=== PATIENT | male | born 1980 | race Caucasian/White ===

== ENCOUNTER 2021-01-31 07:25 | Inpatient (IN) ==
[2021-01-31 07:44] VITALS: BMI 39.1
[2021-01-31 08:12] LABS: BASOPHILS % (AUTO) 0.1 % (0.2-1.0); HEMATOCRIT 44.7 % (42.0-54.0); HEMOGLOBIN 15.3 g/dL (13.5-18.0); LYMPHOCYTES # (AUTO) 0.4 X10^3/uL (1.3-2.9); MEAN CORPUSCULAR HEMOGLOBIN 30.5 pg (27.0-34.0); MEAN CORPUSCULAR HGB CONC 34.2 g/dL (33.0-35.0); MEAN CORPUSCULAR VOLUME 89.1 fL (80.0-100.0); MEAN PLATELET VOLUME 8.1 fL (7.4-11.0); MONOCYTES # (AUTO) 0.2 x10^3/uL (0.3-0.8); MONOCYTES % (AUTO) 4.4 % (0.0-13.0); NEUTROPHILS # (AUTO) 4.5 x10^3/uL (2.2-4.8); NEUTROPHILS % (AUTO) 87.5 % (42.0-75.0); PLATELET COUNT 185 X10^3/uL (150.0-450.0); RED BLOOD COUNT 5.02 X10^6/uL (4.7-6.0); RED CELL DISTRIBUTION WIDTH 13.4 % (11.6-16.5); WHITE BLOOD COUNT 5.1 X10^3/uL (3.6-10.0)
[2021-01-31 08:17] LABS: ABG ALLEN TEST POS; ABG BASE EXCESS 4.1 mmol/L (-2.0-2.0); ABG HCO3 29.2 mmol/L (22-26)
[2021-01-31 08:18] LABS: BLOOD UREA NITROGEN 21 mg/dL (7-18); CALCIUM 8.3 mg/dL (8.5-10.1); CHLORIDE 101 mmol/L (98-107); COR NA(FOR HYPERGLY) 141 mmol/L (136-145); CREATININE 1.41 mg/dL (0.70-1.30); SODIUM 140 mmol/L (136-145); eGFR NON BLACK RACES 59 (>60)
[2021-01-31] MEDS ORDERED: NS 1000 ML 1,000 ML ONE (08:30)
[2021-01-31] MEDS ORDERED: SOLU-Medrol 125 MG VIAL ONE (08:30)
[2021-01-31] MEDS ORDERED: SOLU-Medrol 125 MG VIAL IVP ONE (08:41)
[2021-01-31] MEDS ORDERED: NS 1000 ML 1,000 ML IV ONE (08:41)
--- NOTE | 2021-01-31 08:50 | DR.URIAD ---
HPI Time Seen Time Seen by Provider: 01/31/21 08:05 PCP Primary Care Physician: [facility] Complaint Chief Complaint Doctors Comments: FEVER,, INCREASING SOB AND TIRED TIMES ONE WEEK. Chief Complaint:: Sinus infection s/s started 2 weeks ago. Started running fever a week ago today. Went to the Dr. and tested (+) 01/24. Came to the ER today with increased SOB, intermittent fever x1 week, and lethargy Self Treatment fo Chief Complaint: Pt. has been taking the following rx. since on 01/24. Prednisone daily, Zofran prn, Albuterol inhaler, Doxycycline, Ivermectin (started 01/26) COVID-19 Coronavirus risk:travel/contact w/high risk person: No Has patient experienced Coronavirus symptoms: Yes Coronavirus symptoms experienced: Fever, Coughing and Shortness of Breath Source History Provided: Patient Mode of Arrival Mode of Arrival: Ambulatory Timing Onset of Chief Complaint: 01/24/21 PMH PMH Past Medical History: Yes Past Medical History: Dyslipidemia Past Surgical History: Yes Surgical History: Cholecystectomy Family History History of Family Medical Conditions: Yes Family Medical History: Diabetes Mellitus and Coronary Artery Disease Social History Does patient currently use any type of tobacco product: No Have you used tobacco products in the last 12 months: No Type of Tobacco Use: None Does any household member use tobacco: No Alcohol Use: None Do you use any recreational Drugs:: No Lives With: Significant Other Lives Where: Home Travel Risk Coronavirus risk:travel/contact w/high risk person: No Has patient experienced Coronavirus symptoms: Yes Coronavirus symptoms experienced: Fever, Coughing and Shortness of Breath Infectious screening In the last 2 months have you had wt loss of >10#?: NO Have you had fever, night sweats or hemotysis?: No Have you traveled outside the country in the last 6 months?: No Isolation: Airborn/Negative Pressure ROS Review of Systems Constitutional: See HPI, Fever, Weakness and Fatigue Eyes: See HPI ENTM: See HPI, Nose Discharge and Nose Congestion Respiratoy: Moist Cough and Short of Breath Cardiovascular: No Symptoms Reported and See HPI; negative Chest Pain Gastrointestinal/Abdominal: See HPI, Abdominal Pain and Diarrhea Genitourinary: No Symptoms Reported, See HPI and Dysuria Neurological: See HPI, Headache and Weakness Musculoskeletal: No Symptoms Reported and See HPI Integumentary: No Symptoms Reported and See HPI Hematologic/Lymphatic: No Symptoms Reported Endocrine: No Symptoms Reported Psychiatric: No Symptoms Reported All Other Systems: Reviewed and Negative PE Vital Signs Vitals: Temperature 97.2 F Pulse Rate 78 Respiratory Rate 20 Blood Pressure 130/66 O2 Sat by Pulse Oximetry 95 COURSE Treatment Treatment: SEE ORDERS. Consultation Consultation Comments: DISCUSSED PATIENT WITH DR. POP, HE WILL ADMIT PATIENT. Education/Counseling Education/Counseling: Patient Educated On: Diagnosis ROR Labs Reviewed Laboratory Results Reviewed?: Yes Result Diagrams: 01/31/21 08:03 01/31/21 08:03 Laboratory: WBC 5.1 X10^3/uL (3.6-10.0) 01/31/21 08:03 RBC 5.02 X10^6/uL (4.7-6.0) 01/31/21 08:03 Hgb 15.3 g/dL (13.5-18.0) 01/31/21 08:03 Hct 44.7 % (42.0-54.0) 01/31/21 08:03 MCV 89.1 fL (80.0-100.0) 01/31/21 08:03 MCH 30.5 pg (27.0-34.0) 01/31/21 08:03 MCHC 34.2 g/dL (33.0-35.0) 01/31/21 08:03 RDW 13.4 % (11.6-16.5) 01/31/21 08:03 Plt Count 185 X10^3/uL (150.0-450.0) 01/31/21 08:03 MPV 8.1 fL (7.4-11.0) 01/31/21 08:03 Neut % (Auto) 87.5 % (42.0-75.0) H 01/31/21 08:03 Lymph % (Auto) 8.0 % (21.0-51.0) L 01/31/21 08:03 [place] % (Auto) 4.4 % (0.0-13.0) 01/31/21 08:03 Eos % (Auto) 0.0 % (0.9-2.9) L 01/31/21 08:03 Baso % (Auto) 0.1 % (0.2-1.0) L 01/31/21 08:03 Neut # (Auto) 4.5 x10^3/uL (2.2-4.8) 01/31/21 08:03 Lymph # (Auto) 0.4 X10^3/uL (1.3-2.9) L 01/31/21 08:03 [place] # (Auto) 0.2 x10^3/uL (0.3-0.8) L 01/31/21 08:03 Eos # (Auto) 0.0 x10^3/uL (0.0-0.2) 01/31/21 08:03 Baso # (Auto) 0.0 X10^3/uL (0.0-0.1) 01/31/21 08:03 Absolute Nucleated RBC 0.1 /100WBC 01/31/21 08:03 D-Dimer 0.57 ug/ml (0.0-0.57) 01/31/21 08:03 Sample Site Lbrach 01/31/21 11:03 ABG pH 7.420 (7.35-7.45) 01/31/21 11:03 ABG pCO2 44.0 mmHg (35.0-45.0) 01/31/21 11:03 ABG pO2 50.0 mmHg (80.0-100.0) L 01/31/21 11:03 ABG HCO3 28.5 mmol/L (22-26) H 01/31/21 11:03 ABG O2 Saturation 86.0 % (90-100) L 01/31/21 11:03 ABG Base Excess 3.5 mmol/L (-2.0-2.0) H 01/31/21 11:03 Mino Test Pos 01/31/21 11:03 A-a Gradient 45.0 mmHg 01/31/21 11:03 FiO2 21.0 01/31/21 11:03 Blood Gas Comments Jenaro well ah 01/31/21 11:03 Sodium 140 mmol/L (136-145) 01/31/21 08:03 Corrected Sodium 141 mmol/L (136-145) 01/31/21 08:03 Potassium 3.6 mmol/L (3.5-5.1) 01/31/21 08:03 Chloride 101 mmol/L (98-107) 01/31/21 08:03 Carbon Dioxide 30.0 mmol/L (21-32) 01/31/21 08:03 BUN 21 mg/dL (7-18) H 01/31/21 08:03 Creatinine 1.41 mg/dL (0.70-1.30) H 01/31/21 08:03 Est GFR (MDRD) Af Amer > 60 (>60) 01/31/21 08:03 Est GFR (MDRD) Non-Af 59 (>60) 01/31/21 08:03 Glucose 124 mg/dL (65-99) H 01/31/21 08:03 Calcium 8.3 mg/dL (8.5-10.1) L 01/31/21 08:03 Ferritin 353 ng/mL (26-388) 01/31/21 08:03 C-Reactive Protein 98.70 mg/L (0-3.0) H 01/31/21 08:03 XRAY XRAY Interpreted by: Radiologist (REPORT NOTED AND DISCUSSED WITH PATIENT.) and Self Opioid Opioid Risk Tool Age (Renato box if 16-45): No History of Preadolescent Sexual Abuse: No Total: 0 Total Score Risk Category: Low Risk Copyright: [facility] predicting aberrant behaviors Diagnosis Discharge Problem: Hypoxia, COVID-19 virus infection Pneumonia Qualifiers: Pneumonia type: due to unspecified organism Laterality: bilateral Lung location: lower lobe of lung Qualified Code(s): J18.9 - Pneumonia, unspecified organism Instructions Forms: Precautions for COVID19 Patient Portal Social Distancing
--- NOTE | 2021-01-31 09:48 | RAD ---
HISTORYFever, COVID-19STUDYChest AP portableCOMPARISONNoneFINDINGSHypo inflation accentuates the heart size. It is likely upper limits normal in size. No congestive heart failure is noted. Right-sided perihilar interstitial and ground-glass infiltrates are identified. No definite left lung infiltrates are identified. No areas of consolidation are identified. No pleural effusions are identified. Bony thorax is unremarkable.IMPR ESSIONRight-sided perihilar interstitial and ground-glass infiltratesMild hypo inflationElectronically signed by: NENITA MACIAS (Jan 31, 2021 09:45:49)
[2021-01-31 11:09] LABS: ABG BASE EXCESS 3.5 mmol/L (-2.0-2.0); ABG HCO3 28.5 mmol/L (22-26)
[2021-01-31 11:10] LABS: ABG ALLEN TEST POS
[2021-01-31] MEDS ORDERED: BENADRYL INJ 50 MG VIAL IV ONE (11:51)
[2021-01-31] MEDS ORDERED: REMDESIVIR 200 MG in NS 250 ML IV 250 ML IV ONE (11:51)
[2021-01-31] MEDS ORDERED: NS 250 ML IV 250 ML IV ONE ×2 (11:52→11:54)
[2021-01-31] MEDS ORDERED: REMDESIVIR IV ONE (11:52)
[2021-01-31] MEDS ORDERED: BENADRYL INJ 50 MG VIAL ONE (11:53)
[2021-01-31] MEDS ORDERED: TYLENOL 325 MG TAB PO ONE ×2 (11:53)
[2021-01-31] MEDS ORDERED: TUSSIONEX PENNKINETIC SUSP PO PRN (13:59)
[2021-01-31] MEDS ORDERED: SOLU-Medrol 40 MG VIAL ONE (14:24)
[2021-01-31] MEDS ORDERED: NS 100 ML IV 100 ML ONE (14:24)
[2021-01-31] MEDS ORDERED: ROBITUSSIN DM ONE ×2 (14:24→21:30)
[2021-01-31] MEDS ORDERED: NS 1/2 1000 ML IV 1,000 ML IV ONE (14:25)
[2021-01-31] MEDS ORDERED: ASCORBIC ACID INJ MULTI-DOSE VIAL IV ONE (14:28)
[2021-01-31] MEDS: NS 1/2 1000 ML IV 1,000 ML IV SCH (14:42)
[2021-01-31] MEDS: SOLU-Medrol 40 MG VIAL IVP SCH ×2 (14:43→22:34)
[2021-01-31] MEDS: ROBITUSSIN DM PO SCH ×3 (14:43→22:34)
[2021-01-31] MEDS: ASCORBIC ACID INJ MULTI-DOSE VIAL 1,500 MG in NS 100 ML IV 100 ML IV SCH ×2 (17:43→22:33)
[2021-01-31] MEDS: PULMICORT NEB TX 0.5 MG NEB SCH (20:29)
[2021-01-31] MEDS ORDERED: ZINC SULFATE ONE (21:29)
[2021-01-31] MEDS ORDERED: LOVENOX INJ 30 MG SYR SC ONE (21:30)
[2021-01-31] MEDS ORDERED: NS 100 ML IV + SPIKE MINIBAG* 100 ML IV ONE (21:30)
[2021-01-31] MEDS ORDERED: PEPCID TAB 40 MG ONE (21:30)
[2021-01-31] MEDS ORDERED: VIBRAMYCIN IV ONE (21:30)
[2021-01-31 22:14] LABS: ALANINE AMINOTRANSFERASE 29 Units/L (12-78); ALBUMIN 3.5 g/dL (3.4-5.0); ALKALINE PHOSPHATASE 63 Units/L (46-116); ASPARTATE AMINO TRANSFERASE 31 Units/L (15-37)
[2021-01-31] MEDS: LOVENOX INJ 30 MG SYR SC SCH (22:33)
[2021-01-31] MEDS: PEPCID TAB 40 MG PO SCH (22:34)
[2021-01-31] MEDS: ZINC SULFATE PO SCH (22:34)
[2021-01-31] MEDS: MELATONIN PO SCH (23:27)
[2021-01-31] MEDS: VIBRAMYCIN 100 MG in NS 100 ML IV + SPIKE MINIBAG* 100 ML IV SCH (23:27)
[2021-02-01] MEDS ORDERED: ASCORBIC ACID INJ MULTI-DOSE VIAL IV ONE ×4 (03:58→20:14)
[2021-02-01] MEDS: NS 1/2 1000 ML IV 1,000 ML IV SCH ×3 (04:00→19:51)
[2021-02-01] MEDS: ASCORBIC ACID INJ MULTI-DOSE VIAL 1,500 MG in NS 100 ML IV 100 ML IV SCH ×4 (04:16→21:38)
[2021-02-01] MEDS ORDERED: NS 1000 ML 1,000 ML ONE (06:02)
[2021-02-01] MEDS: SOLU-Medrol 40 MG VIAL IVP SCH ×3 (06:17→21:41)
[2021-02-01 06:30] LABS: BASOPHILS % (AUTO) 0.1 % (0.2-1.0); HEMATOCRIT 42.8 % (42.0-54.0); HEMOGLOBIN 14.5 g/dL (13.5-18.0); LYMPHOCYTES # (AUTO) 0.8 X10^3/uL (1.3-2.9); LYMPHOCYTES % (AUTO) 9.9 % (21.0-51.0); MEAN CORPUSCULAR HEMOGLOBIN 30.2 pg (27.0-34.0); MEAN CORPUSCULAR HGB CONC 33.9 g/dL (33.0-35.0); MEAN CORPUSCULAR VOLUME 89.1 fL (80.0-100.0); MEAN PLATELET VOLUME 8.4 fL (7.4-11.0); MONOCYTES # (AUTO) 0.3 x10^3/uL (0.3-0.8); MONOCYTES % (AUTO) 4.3 % (0.0-13.0); NEUTROPHILS # (AUTO) 6.7 x10^3/uL (2.2-4.8); NEUTROPHILS % (AUTO) 85.7 % (42.0-75.0); PLATELET COUNT 204 X10^3/uL (150.0-450.0); RED BLOOD COUNT 4.81 X10^6/uL (4.7-6.0); RED CELL DISTRIBUTION WIDTH 13.8 % (11.6-16.5); WHITE BLOOD COUNT 7.9 X10^3/uL (3.6-10.0)
[2021-02-01 06:34] LABS: ALANINE AMINOTRANSFERASE 22 Units/L (12-78); ALBUMIN 2.7 g/dL (3.4-5.0); ALKALINE PHOSPHATASE 53 Units/L (46-116); ASPARTATE AMINO TRANSFERASE 30 Units/L (15-37); BLOOD UREA NITROGEN 19 mg/dL (7-18); CALCIUM 8.1 mg/dL (8.5-10.1); CARBON DIOXIDE 30.1 mmol/L (21-32); CHLORIDE 105 mmol/L (98-107); COR CA(FOR HYPOALB) 9.1 mg/dL (8.5-10.1); COR NA(FOR HYPERGLY) 143 mmol/L (136-145); CREATININE 1.14 mg/dL (0.70-1.30); SODIUM 142 mmol/L (136-145); TOTAL PROTEIN 6.9 g/dL (6.4-8.2); eGFR NON BLACK RACES > 60 (>60)
[2021-02-01] MEDS ORDERED: LOVENOX INJ 30 MG SYR SC ONE ×2 (08:50→20:17)
[2021-02-01] MEDS ORDERED: VIBRAMYCIN IV ONE ×2 (08:50→20:17)
[2021-02-01] MEDS ORDERED: TRICOR TAB 160 MG ONE (08:50)
[2021-02-01] MEDS ORDERED: ROBITUSSIN DM ONE ×4 (08:50→20:17)
[2021-02-01] MEDS ORDERED: ZINC SULFATE ONE ×2 (08:50→20:16)
[2021-02-01] MEDS ORDERED: PEPCID TAB 40 MG ONE ×2 (08:50→20:16)
[2021-02-01] MEDS ORDERED: NS 100 ML IV 100 ML ONE ×2 (08:51→13:14)
[2021-02-01] MEDS: LOVENOX INJ 30 MG SYR SC SCH ×2 (08:58→21:39)
[2021-02-01] MEDS: ROBITUSSIN DM PO SCH ×6 (08:59→21:40)
[2021-02-01] MEDS: TRICOR TAB 160 MG PO SCH (08:59)
[2021-02-01] MEDS: PEPCID TAB 40 MG PO SCH ×2 (08:59→21:41)
[2021-02-01] MEDS: VIBRAMYCIN 100 MG in NS 100 ML IV + SPIKE MINIBAG* 100 ML IV SCH ×2 (09:00→21:40)
[2021-02-01] MEDS ORDERED: VITAMIN D (1.25MG) PO SCH (09:00)
[2021-02-01] MEDS ORDERED: VITAMIN A PO SCH (09:00)
[2021-02-01] MEDS: VSL#3 PO SCH (09:00)
[2021-02-01] MEDS: ZINC SULFATE PO SCH ×2 (09:01→21:40)
[2021-02-01] MEDS ORDERED: NS 100 ML IV + SPIKE MINIBAG* 100 ML IV ONE ×2 (09:02→20:17)
[2021-02-01] MEDS: PULMICORT NEB TX 0.5 MG NEB SCH ×2 (09:35→21:30)
[2021-02-01] MEDS ORDERED: NS 250 ML IV 250 ML IV ONE (10:04)
[2021-02-01] MEDS ORDERED: REMDESIVIR IV ONE (10:04)
[2021-02-01] MEDS: REMDESIVIR 100 MG in NS 250 ML IV 250 ML IV SCH (10:21)
[2021-02-01] MEDS ORDERED: SOLU-Medrol 125 MG VIAL ONE (13:15)
--- NOTE | 2021-02-01 14:26 | CT ---
HISTORYShortness of breath, elevated D-dimer, COVID-19STUDYCTA chest with contrast for pulmonary embolusTechnique: Axial post-contrast images with coronal and sagittal and 3 dimensional maximum intensity projection images obtained and evaluated. Dose reduction procedures were used with mA/kv adjusted for body size.COMPARISONNoneFINDINGSThere is no evidence for acute pulmonary thromboembolic disease in the main pulmonary artery, right and left main pulmonary arteries, and lobar branches. Evaluation more peripherally is not possible due to suboptimal bolus timing. Examination of the mediastinum demonstrated no evidence for mediastinal masses, enlarged mediastinal or enlarged hilar adenopathy or significant aortic abnormality. Coronary artery calcifications are present. The no pleural effusions are identified. No chest wall or axillary abnormality is identified. Those portions of the upper abdominal organs visualized were within normal limits to the limitations of early arterial injection timing. Examination of the lung baltazar demonstrated bilateral peripheral and perihilar upper and lower lobe ground-glass and alveolar infiltrates some of which demonstrates subpleural sparing and some peribronchial consolidation. Findings are consistent with multifocal pneumonia which could be bacterial, viral, or atypical viral in origin. COVID-19 lung involvement can have this appearance.IMPRESSIONNo evidence for acute pulmonary thromboembolic disease in the main pulmonary artery, right and left main pulmonary arteries, and lobar branches. Evaluation more peripherally is not possible due to suboptimal bolus timing.Diffuse bilateral peripheral and perihilar ground-glass and alveolar infiltrates consistent with multifocal pneumonia which could be bacterial, viral, or atypical viral in origin. This is a common appearance for COVID-19 lung involvement.Electronically signed by: NENITA MACIAS (Feb 01, 2021 14:24:30)
[2021-02-01] MEDS ORDERED: NS 100 ML IV 200 ML ONE (20:16)
[2021-02-01] MEDS ORDERED: MELATONIN PO SCH (21:00)
[2021-02-01] MEDS: MELATONIN PO SCH (21:39)
[2021-02-01] MEDS ORDERED: ZOFRAN INJ 4 MG VIAL ONE (22:36)
[2021-02-01] MEDS: ZOFRAN INJ 4 MG VIAL IVP PRN (22:40)
[2021-02-02] MEDS ORDERED: NS 1/2 1000 ML IV 1,000 ML IV ONE (02:07)
[2021-02-02] MEDS ORDERED: ASCORBIC ACID INJ MULTI-DOSE VIAL IV ONE ×4 (02:24→13:59)
[2021-02-02] MEDS: ASCORBIC ACID INJ MULTI-DOSE VIAL 1,500 MG in NS 100 ML IV 100 ML IV SCH ×4 (03:26→21:27)
[2021-02-02] MEDS: NS 1/2 1000 ML IV 1,000 ML IV SCH ×3 (03:26→21:55)
[2021-02-02 05:16] LABS: BASOPHILS % (AUTO) 0.1 % (0.2-1.0); HEMATOCRIT 43.8 % (42.0-54.0); HEMOGLOBIN 14.9 g/dL (13.5-18.0); LYMPHOCYTES # (AUTO) 0.6 X10^3/uL (1.3-2.9); LYMPHOCYTES % (AUTO) 6.4 % (21.0-51.0); MEAN CORPUSCULAR HEMOGLOBIN 30.1 pg (27.0-34.0); MEAN CORPUSCULAR VOLUME 88.5 fL (80.0-100.0); MEAN PLATELET VOLUME 8.7 fL (7.4-11.0); MONOCYTES # (AUTO) 0.4 x10^3/uL (0.3-0.8); NEUTROPHILS # (AUTO) 8.5 x10^3/uL (2.2-4.8); NEUTROPHILS % (AUTO) 89.5 % (42.0-75.0); PLATELET COUNT 229 X10^3/uL (150.0-450.0); RED BLOOD COUNT 4.95 X10^6/uL (4.7-6.0); RED CELL DISTRIBUTION WIDTH 13.4 % (11.6-16.5); WHITE BLOOD COUNT 9.5 X10^3/uL (3.6-10.0)
--- NOTE | 2021-02-02 05:21 | RAD ---
HISTORYCOVID PNEUMONIA PSH: GBSTUDYCHEST, 1 [id number]/17/2021FINDINGSThe trachea is midline. The cardiac silhouette is unremarkable. Patchy bilateral perihilar and lower lobe infiltrates minimally increased from prior study. No pneumothorax. The bony thorax is unremarkable.IMPRESSIONPatchy bilateral perihilar and lower lobe infiltrates consistent with multifocal pneumonia, slightly increased from previous 01/31/2021lectronically signed by: Mike Morgan (Feb 02, 2021 05:19:45)
[2021-02-02] MEDS ORDERED: SOLU-Medrol 125 MG VIAL ONE ×2 (05:22→13:48)
[2021-02-02 05:24] LABS: ALANINE AMINOTRANSFERASE 27 Units/L (12-78); ALBUMIN 2.8 g/dL (3.4-5.0); ALKALINE PHOSPHATASE 54 Units/L (46-116); ASPARTATE AMINO TRANSFERASE 35 Units/L (15-37); BLOOD UREA NITROGEN 19 mg/dL (7-18); CALCIUM 8.1 mg/dL (8.5-10.1); CARBON DIOXIDE 32.5 mmol/L (21-32); CHLORIDE 105 mmol/L (98-107); COR CA(FOR HYPOALB) 9.1 mg/dL (8.5-10.1); COR NA(FOR HYPERGLY) 147 mmol/L (136-145); CREATININE 1.15 mg/dL (0.70-1.30); SODIUM 145 mmol/L (136-145); eGFR NON BLACK RACES > 60 (>60)
[2021-02-02] MEDS: SOLU-Medrol 40 MG VIAL IVP SCH ×2 (05:32→13:51)
[2021-02-02] MEDS ORDERED: ZINC SULFATE ONE (09:22)
[2021-02-02] MEDS ORDERED: TRICOR TAB 160 MG ONE (09:22)
[2021-02-02] MEDS ORDERED: PEPCID TAB 40 MG ONE (09:22)
[2021-02-02] MEDS ORDERED: LOVENOX INJ 30 MG SYR SC ONE (09:23)
[2021-02-02] MEDS ORDERED: NS 250 ML IV 250 ML IV ONE ×2 (09:23→13:49)
[2021-02-02] MEDS ORDERED: ROBITUSSIN DM ONE ×2 (09:23→13:49)
[2021-02-02] MEDS ORDERED: VIBRAMYCIN IV ONE (09:23)
[2021-02-02] MEDS ORDERED: REMDESIVIR IV ONE (09:23)
[2021-02-02] MEDS ORDERED: NS 50 ML IV 50 ML IV ONE ×2 (09:24→13:59)
[2021-02-02] MEDS: PULMICORT NEB TX 0.5 MG NEB SCH ×2 (09:28→21:00)
[2021-02-02] MEDS: VITAMIN A PO SCH (09:32)
[2021-02-02] MEDS: LOVENOX INJ 30 MG SYR SC SCH ×2 (09:32→22:28)
[2021-02-02] MEDS: PEPCID TAB 40 MG PO SCH (09:33)
[2021-02-02] MEDS: TRICOR TAB 160 MG PO SCH (09:33)
[2021-02-02] MEDS: VSL#3 PO SCH (09:34)
[2021-02-02] MEDS: ZINC SULFATE PO SCH ×2 (09:34→21:30)
[2021-02-02] MEDS: REMDESIVIR 100 MG in NS 250 ML IV 250 ML IV SCH (09:34)
[2021-02-02] MEDS: ROBITUSSIN DM PO SCH ×5 (09:35→21:29)
[2021-02-02] MEDS ORDERED: VITAMIN D3 125 mcg (5,000 UNITS) ONE (09:45)
[2021-02-02] MEDS ORDERED: NS 100 ML IV + SPIKE MINIBAG* 100 ML IV ONE (09:48)
[2021-02-02] MEDS: VITAMIN D3 125 mcg (5,000 UNITS) PO SCH (09:53)
[2021-02-02] MEDS: VIBRAMYCIN 100 MG in NS 100 ML IV + SPIKE MINIBAG* 100 ML IV SCH ×2 (09:55→21:30)
[2021-02-02] MEDS ORDERED: AFRIN NASAL SPRAY PRN (10:11)
[2021-02-02] MEDS ORDERED: BENADRYL INJ 50 MG VIAL IV PRN (10:11)
[2021-02-02] MEDS ORDERED: MICRO K EXTEN CAP 10 MEQ PO ONE (10:54)
[2021-02-02] MEDS ORDERED: LASIX ONE (10:54)
[2021-02-02] MEDS ORDERED: TUSSIONEX PENNKINETIC SUSP ONE (10:54)
[2021-02-02] MEDS: LEXAPRO PO SCH (10:56)
[2021-02-02] MEDS: TUSSIONEX PENNKINETIC SUSP PO SCH ×2 (10:56→23:35)
[2021-02-02] MEDS ORDERED: LASIX IVP SCH (11:00)
[2021-02-02] MEDS ORDERED: MICRO K EXTEN CAP 10 MEQ PO SCH (11:00)
[2021-02-02 11:23] LABS: ABG BASE EXCESS 7.2 mmol/L (-2.0-2.0)
[2021-02-02 11:25] LABS: ABG ALLEN TEST POS
[2021-02-02] MEDS ORDERED: ZITHROMAX INJ 500 MG VIAL IV ONE (13:48)
[2021-02-02] MEDS: ZITHROMAX INJ 500 MG VIAL 500 MG in NS 250 ML IV 250 ML IV SCH (13:50)
--- NOTE | 2021-02-02 17:32 | DR.H&P ---
H&P - History & Physical for Day of: H&P Date: 01/31/21 - Chief Complaint Chief Complaint: FEVER, CCC, SOB - History of Present Illness History of Present Illness: Sinus infection s/s started 2 weeks ago. Started running fever a week ago today. Went to the Dr. and tested (+) 01/24. Came to the ER today with increased SOB, intermittent fever x1 week, and lethargy - Past Medical History Past Medical History: Dyslipidemia. denies: Coronary Artery Disease, Diabetes - Past Surgical History Surgical History: Cholecystectomy - Family History Family Medical History: Diabetes Mellitus, Heart Failure - Social History Does patient currently use any type of tobacco product: No Have you used tobacco products in the last 12 months: No Type of Tobacco Use: None Does any household member use tobacco: No Alcohol Use: None Drug Use: None - Medications Home Medications: No Known Drug Allergies Allergy (Verified 01/31/21 07:34) CONTINUE taking the following medications NK 01/31/21 [History] - Review of Systems Constitutional: Weakness Eyes: No Symptoms Reported ENT: Nose Congestion Respiratory: Cough, Shortness of Breath, SOB with Excertion, Pleuritic Pain Cardiovascular: No Symptoms Reported Gastrointestinal: Nausea Genitourinary: No Symptoms Reported Musculoskeletal: No Symptoms Reported Skin: No Symptoms Reported Neurological: No Symptoms Reported - Physical Exam Vital Signs: Temperature 98.2 F Pulse Rate [Left Brachial] 69 Pulse Rate 74 Respiratory Rate 20 Blood Pressure [Left Arm] 153/79 Blood Pressure 175/86 O2 Sat by Pulse Oximetry 91 Oriented: Normal Eyes: Normal Ear: Normal Nose: Normal Throat: Normal Respiratory: RML Diminished, RLL Diminished, LML Diminished, LLL Diminished Cardiovascular: Normal. negative: Edema : Normal Auscultation: Bowel Sounds: Normal Tenderness: Normal Skin: Decreased Turgur Musculoskeletal: Normal Psychiatric: Anxiety Mood Description: Anxious Affect: Anxious Speech Pattern: Clear, Appropriate - Assessment/Plan (1) Hypoxia Status: Acute Plan: ADMIT, COVID ISOLATION, RESP THERAPY. SUPPLEMENTAL O2. IV HYDRATION, REMDESIVIR, SOLU MEDROL. IV ATBX, CTA CHEST ON ADMISSION. LOVENOX, BP AND CARDIAC MONITORING (2) COVID-19 virus infection Status: Acute (3) Pneumonia Qualifiers: Pneumonia type: due to unspecified organism Laterality: bilateral Lung location: lower lobe of lung Qualified Code(s): J18.9 - Pneumonia, unspecified organism Status: Acute - Allergies Allergies/Adverse Reactions: Allergies Allergy/AdvReac Type Severity Reaction Status Date / Time No Known Drug Allergies Allergy Verified 01/31/21 07:34
[2021-02-02] MEDS ORDERED: PHARMACY CONSULT - IVERMECTIN XX SCH (20:00)
[2021-02-02] MEDS: IVERMECTIN PO SCH (20:30)
[2021-02-02] MEDS: MELATONIN PO SCH (21:28)
[2021-02-02] MEDS: PROTONIX INJ 40 MG VIAL IVP SCH (21:29)
[2021-02-02] MEDS: SOLU-Medrol 125 MG VIAL IVP SCH (22:31)
[2021-02-03] MEDS ORDERED: NS 1/2 1000 ML IV 1,000 ML IV ONE (00:50)
[2021-02-03] MEDS: ZOFRAN INJ 4 MG VIAL IVP PRN ×2 (01:19→21:54)
[2021-02-03] MEDS: ASCORBIC ACID INJ MULTI-DOSE VIAL 1,500 MG in NS 100 ML IV 100 ML IV SCH ×4 (02:59→21:50)
[2021-02-03 05:22] LABS: ABG BASE EXCESS 10.7 mmol/L (-2.0-2.0)
[2021-02-03 05:23] LABS: ABG ALLEN TEST POS; ABG HCO3 35.7 mmol/L (22-26)
[2021-02-03 06:17] LABS: BASOPHILS % (AUTO) 0.1 % (0.2-1.0); HEMATOCRIT 42.3 % (42.0-54.0); HEMOGLOBIN 14.4 g/dL (13.5-18.0); LYMPHOCYTES # (AUTO) 0.6 X10^3/uL (1.3-2.9); LYMPHOCYTES % (AUTO) 6.9 % (21.0-51.0); MEAN CORPUSCULAR HEMOGLOBIN 30.2 pg (27.0-34.0); MEAN CORPUSCULAR HGB CONC 33.9 g/dL (33.0-35.0); MEAN CORPUSCULAR VOLUME 89.1 fL (80.0-100.0); MEAN PLATELET VOLUME 8.5 fL (7.4-11.0); MONOCYTES # (AUTO) 0.4 x10^3/uL (0.3-0.8); MONOCYTES % (AUTO) 4.7 % (0.0-13.0); NEUTROPHILS # (AUTO) 7.8 x10^3/uL (2.2-4.8); NEUTROPHILS % (AUTO) 88.3 % (42.0-75.0); PLATELET COUNT 231 X10^3/uL (150.0-450.0); RED BLOOD COUNT 4.75 X10^6/uL (4.7-6.0); RED CELL DISTRIBUTION WIDTH 13.5 % (11.6-16.5); WHITE BLOOD COUNT 8.8 X10^3/uL (3.6-10.0)
--- NOTE | 2021-02-03 06:23 | RAD ---
HISTORYcovidSTUDYPortable AP chestCOMPARISONAugust 2020FINDINGSSimilar/stable cardiac size. There is no definite change in appearance of the bilateral airspace disease. No additional areas of consolidation are identified. There is no evidence for complicating pneumothorax or developing pleural effusion.IMPRESSIONNo change in appearance of the bilateral pneumonia since prior exam.Electronically signed by: OSCAR ANDRADE (Feb 03, 2021 06:21:55)
[2021-02-03] MEDS: SOLU-Medrol 125 MG VIAL IVP SCH ×3 (06:40→21:53)
[2021-02-03 06:59] LABS: ALANINE AMINOTRANSFERASE 28 Units/L (12-78); ALBUMIN 2.6 g/dL (3.4-5.0); ALKALINE PHOSPHATASE 52 Units/L (46-116); ASPARTATE AMINO TRANSFERASE 34 Units/L (15-37); BLOOD UREA NITROGEN 23 mg/dL (7-18); CALCIUM 7.8 mg/dL (8.5-10.1); CARBON DIOXIDE 33.5 mmol/L (21-32); CHLORIDE 107 mmol/L (98-107); COR CA(FOR HYPOALB) 8.9 mg/dL (8.5-10.1); COR NA(FOR HYPERGLY) 148 mmol/L (136-145); CREATININE 1.01 mg/dL (0.70-1.30); SODIUM 146 mmol/L (136-145); TOTAL PROTEIN 6.4 g/dL (6.4-8.2); eGFR NON BLACK RACES > 60 (>60)
[2021-02-03] MEDS ORDERED: LEXAPRO ONE (08:55)
[2021-02-03] MEDS: PULMICORT NEB TX 0.5 MG NEB SCH ×2 (09:22→21:10)
[2021-02-03] MEDS: ROBITUSSIN DM PO SCH ×4 (09:30→21:53)
[2021-02-03] MEDS: LOVENOX INJ 30 MG SYR SC SCH ×2 (09:30→21:50)
[2021-02-03] MEDS: LEXAPRO PO SCH (09:31)
[2021-02-03] MEDS: IVERMECTIN PO SCH (09:31)
[2021-02-03] MEDS: TRICOR TAB 160 MG PO SCH (09:35)
[2021-02-03] MEDS: VSL#3 PO SCH (09:35)
[2021-02-03] MEDS: PROTONIX INJ 40 MG VIAL IVP SCH ×2 (09:35→21:52)
[2021-02-03] MEDS: REMDESIVIR 100 MG in NS 250 ML IV 250 ML IV SCH (10:56)
[2021-02-03] MEDS: VIBRAMYCIN 100 MG in NS 100 ML IV + SPIKE MINIBAG* 100 ML IV SCH ×2 (10:56→21:53)
[2021-02-03] MEDS: VITAMIN D3 125 mcg (5,000 UNITS) PO SCH (10:56)
[2021-02-03] MEDS: VITAMIN A PO SCH (10:56)
[2021-02-03] MEDS: ZINC SULFATE PO SCH ×2 (10:57→21:53)
[2021-02-03] MEDS ORDERED: TUSSIONEX PENNKINETIC SUSP PO PRN (11:10)
[2021-02-03] MEDS: ZITHROMAX INJ 500 MG VIAL 500 MG in NS 250 ML IV 250 ML IV SCH (12:14)
[2021-02-03] MEDS: NS 1/2 1000 ML IV 1,000 ML IV SCH (14:46)
[2021-02-03] MEDS: ZESTRIL TAB 5 MG PO SCH (15:17)
[2021-02-03] MEDS: MELATONIN PO SCH (21:52)
[2021-02-04] MEDS: ASCORBIC ACID INJ MULTI-DOSE VIAL 1,500 MG in NS 100 ML IV 100 ML IV SCH ×4 (03:22→20:37)
[2021-02-04] MEDS ORDERED: NS 1/2 1000 ML IV 1,000 ML IV ONE (03:30)
[2021-02-04] MEDS: NS 1/2 1000 ML IV 1,000 ML IV SCH ×2 (03:34→19:11)
[2021-02-04 04:07] LABS: ABG BASE EXCESS 9.1 mmol/L (-2.0-2.0)
[2021-02-04 04:08] LABS: ABG ALLEN TEST POS; ABG HCO3 33.5 mmol/L (22-26)
--- NOTE | 2021-02-04 06:14 | RAD ---
HISTORYPneumoniaSTUDYPortable AP chestCOMPARISONAugust 2020FINDINGSHeart size is unchanged. Bilateral airspace disease is again noted, similar in the right lung and slightly increased in the left upper lobe. No definite pneumothorax, pneumomediastinum or pleural fluid demonstrated.IMPRESSIONPersistent bilateral pneumonia with slight apparent progression in the left upper lung.Electronically signed by: OSCAR ANDRADE (Feb 04, 2021 06:12:16)
[2021-02-04 06:18] LABS: BASOPHILS % (AUTO) 0.1 % (0.2-1.0); HEMATOCRIT 42.5 % (42.0-54.0); HEMOGLOBIN 14.2 g/dL (13.5-18.0); LYMPHOCYTES # (AUTO) 0.6 X10^3/uL (1.3-2.9); LYMPHOCYTES % (AUTO) 7.5 % (21.0-51.0); MEAN CORPUSCULAR HEMOGLOBIN 29.9 pg (27.0-34.0); MEAN CORPUSCULAR HGB CONC 33.4 g/dL (33.0-35.0); MEAN CORPUSCULAR VOLUME 89.4 fL (80.0-100.0); MEAN PLATELET VOLUME 8.7 fL (7.4-11.0); MONOCYTES # (AUTO) 0.3 x10^3/uL (0.3-0.8); MONOCYTES % (AUTO) 4.4 % (0.0-13.0); PLATELET COUNT 230 X10^3/uL (150.0-450.0); RED BLOOD COUNT 4.76 X10^6/uL (4.7-6.0); RED CELL DISTRIBUTION WIDTH 13.4 % (11.6-16.5); WHITE BLOOD COUNT 7.9 X10^3/uL (3.6-10.0)
[2021-02-04] MEDS: SOLU-Medrol 125 MG VIAL IVP SCH ×3 (06:18→21:38)
[2021-02-04 06:56] LABS: ALANINE AMINOTRANSFERASE 30 Units/L (12-78); ALBUMIN 2.5 g/dL (3.4-5.0); ALKALINE PHOSPHATASE 52 Units/L (46-116); ASPARTATE AMINO TRANSFERASE 26 Units/L (15-37); BLOOD UREA NITROGEN 24 mg/dL (7-18); CALCIUM 7.5 mg/dL (8.5-10.1); CARBON DIOXIDE 30.3 mmol/L (21-32); CHLORIDE 108 mmol/L (98-107); COR CA(FOR HYPOALB) 8.7 mg/dL (8.5-10.1); COR NA(FOR HYPERGLY) 148 mmol/L (136-145); CREATININE 0.98 mg/dL (0.70-1.30); SODIUM 146 mmol/L (136-145); eGFR NON BLACK RACES > 60 (>60)
[2021-02-04] MEDS ORDERED: LEXAPRO ONE (07:10)
[2021-02-04] MEDS: REMDESIVIR 100 MG in NS 250 ML IV 250 ML IV SCH (08:00)
[2021-02-04] MEDS: PROTONIX INJ 40 MG VIAL IVP SCH ×2 (08:45→20:36)
[2021-02-04] MEDS: LOVENOX INJ 30 MG SYR SC SCH (08:45)
[2021-02-04] MEDS: ROBITUSSIN DM PO SCH ×4 (08:46→20:35)
[2021-02-04] MEDS: IVERMECTIN PO SCH (08:46)
[2021-02-04] MEDS: VITAMIN A PO SCH (08:48)
[2021-02-04] MEDS: LEXAPRO PO SCH (08:48)
[2021-02-04] MEDS: VSL#3 PO SCH (08:49)
[2021-02-04] MEDS: ZINC SULFATE PO SCH ×2 (08:49→20:36)
[2021-02-04] MEDS: TRICOR TAB 160 MG PO SCH (08:49)
[2021-02-04] MEDS: VITAMIN D3 125 mcg (5,000 UNITS) PO SCH (08:49)
[2021-02-04] MEDS: ZESTRIL TAB 5 MG PO SCH (08:50)
[2021-02-04] MEDS: VIBRAMYCIN 100 MG in NS 100 ML IV + SPIKE MINIBAG* 100 ML IV SCH ×2 (08:50→20:36)
[2021-02-04] MEDS: PULMICORT NEB TX 0.5 MG NEB SCH ×2 (09:05→20:40)
[2021-02-04] MEDS: ASPIRIN EC 81 MG PO SCH (11:30)
[2021-02-04] MEDS: ZITHROMAX INJ 500 MG VIAL 500 MG in NS 250 ML IV 250 ML IV SCH (12:01)
[2021-02-04] MEDS: MELATONIN PO SCH (20:36)
[2021-02-04] MEDS ORDERED: LOVENOX INJ 30 MG SYR SC SCH (21:00)
[2021-02-04] MEDS: LOVENOX INJ 40 MG SYR SC SCH (21:37)
[2021-02-05] MEDS: ASCORBIC ACID INJ MULTI-DOSE VIAL 1,500 MG in NS 100 ML IV 100 ML IV SCH ×4 (02:31→20:35)
[2021-02-05] MEDS ORDERED: NS 1/2 1000 ML IV 1,000 ML IV ONE (04:35)
[2021-02-05 04:47] LABS: ABG BASE EXCESS 7.6 mmol/L (-2.0-2.0)
[2021-02-05 04:49] LABS: ABG ALLEN TEST POS
[2021-02-05] MEDS: NS 1/2 1000 ML IV 1,000 ML IV SCH ×2 (05:27→20:33)
[2021-02-05] MEDS: SOLU-Medrol 125 MG VIAL IVP SCH ×3 (05:27→21:28)
[2021-02-05 06:43] LABS: BASOPHILS % (AUTO) 0.1 % (0.2-1.0); HEMATOCRIT 41.8 % (42.0-54.0); HEMOGLOBIN 14.3 g/dL (13.5-18.0); LYMPHOCYTES # (AUTO) 0.7 X10^3/uL (1.3-2.9); LYMPHOCYTES % (AUTO) 9.1 % (21.0-51.0); MEAN CORPUSCULAR HGB CONC 34.1 g/dL (33.0-35.0); MEAN CORPUSCULAR VOLUME 87.7 fL (80.0-100.0); MEAN PLATELET VOLUME 8.6 fL (7.4-11.0); MONOCYTES # (AUTO) 0.4 x10^3/uL (0.3-0.8); MONOCYTES % (AUTO) 5.2 % (0.0-13.0); NEUTROPHILS # (AUTO) 6.5 x10^3/uL (2.2-4.8); NEUTROPHILS % (AUTO) 85.6 % (42.0-75.0); PLATELET COUNT 243 X10^3/uL (150.0-450.0); RED BLOOD COUNT 4.76 X10^6/uL (4.7-6.0); RED CELL DISTRIBUTION WIDTH 13.4 % (11.6-16.5); WHITE BLOOD COUNT 7.7 X10^3/uL (3.6-10.0)
[2021-02-05 06:50] LABS: ALANINE AMINOTRANSFERASE 29 Units/L (12-78); ALBUMIN 2.5 g/dL (3.4-5.0); ALKALINE PHOSPHATASE 48 Units/L (46-116); ASPARTATE AMINO TRANSFERASE 22 Units/L (15-37); BLOOD UREA NITROGEN 25 mg/dL (7-18); CALCIUM 7.6 mg/dL (8.5-10.1); CARBON DIOXIDE 31.4 mmol/L (21-32); CHLORIDE 107 mmol/L (98-107); COR CA(FOR HYPOALB) 8.8 mg/dL (8.5-10.1); COR NA(FOR HYPERGLY) 147 mmol/L (136-145); CREATININE 1.01 mg/dL (0.70-1.30); SODIUM 145 mmol/L (136-145); TOTAL PROTEIN 5.9 g/dL (6.4-8.2); eGFR NON BLACK RACES > 60 (>60)
[2021-02-05] MEDS ORDERED: LEXAPRO ONE (07:11)
[2021-02-05] MEDS: ROBITUSSIN DM PO SCH ×4 (08:22→20:34)
[2021-02-05] MEDS: ZESTRIL TAB 5 MG PO SCH (08:23)
[2021-02-05] MEDS: VITAMIN D3 125 mcg (5,000 UNITS) PO SCH (08:23)
[2021-02-05] MEDS: LEXAPRO PO SCH (08:24)
[2021-02-05] MEDS: ZINC SULFATE PO SCH ×2 (08:24→20:34)
[2021-02-05] MEDS: ASPIRIN EC 81 MG PO SCH (08:24)
[2021-02-05] MEDS: VITAMIN A PO SCH (08:25)
[2021-02-05] MEDS: TRICOR TAB 160 MG PO SCH (08:25)
[2021-02-05] MEDS: PROTONIX INJ 40 MG VIAL IVP SCH ×2 (08:25→20:34)
[2021-02-05] MEDS: VSL#3 PO SCH (08:26)
[2021-02-05] MEDS: PULMICORT NEB TX 0.5 MG NEB SCH (09:00)
[2021-02-05] MEDS: ZITHROMAX INJ 500 MG VIAL 500 MG in NS 250 ML IV 250 ML IV SCH (09:49)
[2021-02-05] MEDS: LOVENOX INJ 40 MG SYR SC SCH ×2 (09:50→20:33)
[2021-02-05] MEDS: IVERMECTIN PO SCH (09:59)
[2021-02-05] MEDS: VIBRAMYCIN 100 MG in NS 100 ML IV + SPIKE MINIBAG* 100 ML IV SCH ×2 (10:00→20:34)
[2021-02-05] MEDS: MELATONIN PO SCH (20:34)
[2021-02-06] MEDS: PULMICORT NEB TX 0.5 MG NEB SCH ×2 (01:35→09:20)
[2021-02-06] MEDS: ASCORBIC ACID INJ MULTI-DOSE VIAL 1,500 MG in NS 100 ML IV 100 ML IV SCH ×3 (02:25→14:05)
[2021-02-06 05:07] LABS: ABG BASE EXCESS 7.1 mmol/L (-2.0-2.0)
[2021-02-06 05:08] LABS: ABG ALLEN TEST POS; ABG HCO3 31.3 mmol/L (22-26)
[2021-02-06] MEDS: SOLU-Medrol 125 MG VIAL IVP SCH ×2 (05:44→14:05)
[2021-02-06 07:31] LABS: BASOPHILS % (AUTO) 0.2 % (0.2-1.0); HEMATOCRIT 47.1 % (42.0-54.0); HEMOGLOBIN 15.9 g/dL (13.5-18.0); LYMPHOCYTES # (AUTO) 0.7 X10^3/uL (1.3-2.9); MEAN CORPUSCULAR HEMOGLOBIN 29.8 pg (27.0-34.0); MEAN CORPUSCULAR HGB CONC 33.9 g/dL (33.0-35.0); MEAN PLATELET VOLUME 8.4 fL (7.4-11.0); MONOCYTES # (AUTO) 0.4 x10^3/uL (0.3-0.8); MONOCYTES % (AUTO) 3.8 % (0.0-13.0); NEUTROPHILS # (AUTO) 9.1 x10^3/uL (2.2-4.8); PLATELET COUNT 270 X10^3/uL (150.0-450.0); RED BLOOD COUNT 5.35 X10^6/uL (4.7-6.0); RED CELL DISTRIBUTION WIDTH 13.3 % (11.6-16.5); WHITE BLOOD COUNT 10.2 X10^3/uL (3.6-10.0)
[2021-02-06 07:46] LABS: ALANINE AMINOTRANSFERASE 32 Units/L (12-78); ALBUMIN 2.8 g/dL (3.4-5.0); ALKALINE PHOSPHATASE 51 Units/L (46-116); ASPARTATE AMINO TRANSFERASE 22 Units/L (15-37); BLOOD UREA NITROGEN 23 mg/dL (7-18); CALCIUM 7.9 mg/dL (8.5-10.1); CARBON DIOXIDE 27.4 mmol/L (21-32); CHLORIDE 104 mmol/L (98-107); COR CA(FOR HYPOALB) 8.9 mg/dL (8.5-10.1); COR NA(FOR HYPERGLY) 142 mmol/L (136-145); CREATININE 0.94 mg/dL (0.70-1.30); SODIUM 141 mmol/L (136-145); TOTAL PROTEIN 6.5 g/dL (6.4-8.2); eGFR NON BLACK RACES > 60 (>60)
[2021-02-06] MEDS ORDERED: LEXAPRO ONE (08:56)
[2021-02-06] MEDS: PROTONIX INJ 40 MG VIAL IVP SCH (09:47)
[2021-02-06] MEDS: VIBRAMYCIN 100 MG in NS 100 ML IV + SPIKE MINIBAG* 100 ML IV SCH (09:47)
[2021-02-06] MEDS: LOVENOX INJ 40 MG SYR SC SCH (09:47)
[2021-02-06] MEDS: ROBITUSSIN DM PO SCH ×2 (09:47→13:06)
[2021-02-06] MEDS: IVERMECTIN PO SCH (09:49)
[2021-02-06] MEDS: TRICOR TAB 160 MG PO SCH (09:50)
[2021-02-06] MEDS: LEXAPRO PO SCH (09:50)
[2021-02-06] MEDS: VITAMIN A PO SCH (09:50)
[2021-02-06] MEDS: VSL#3 PO SCH (09:50)
[2021-02-06] MEDS: ASPIRIN EC 81 MG PO SCH (09:50)
[2021-02-06] MEDS: VITAMIN D3 125 mcg (5,000 UNITS) PO SCH (09:50)
[2021-02-06] MEDS: ZESTRIL TAB 5 MG PO SCH (09:50)
[2021-02-06] MEDS: ZITHROMAX INJ 500 MG VIAL 500 MG in NS 250 ML IV 250 ML IV SCH (11:20)
[2021-02-06] MEDS: ZINC SULFATE PO SCH (11:20)
[2021-02-06] MEDS: NS 1/2 1000 ML IV 1,000 ML IV SCH (15:07)
[2021-02-06 16:09] VITALS: BP 131/63
== END 2021-02-06 16:50 | disposition home or self-care (01) | DRG 177 ==
LOC: ER 07:32 → OBS 11:59 → MED/SURG 02-02 17:07
PROVIDERS: ADMIT Internal Medicine; ATTEND Internal Medicine
DX: R03.0 Elevated blood-pressure reading, without diagnosis of hypertension; R09.02 Hypoxemia; R06.02 Shortness of breath; R79.89 Other specified abnormal findings of blood chemistry; J12.82 Pneumonia due to coronavirus disease 2019; R79.82 Elevated C-reactive protein (CRP); R79.1 Abnormal coagulation profile; U07.1 COVID-19